=== PATIENT | female | born 1975 | race Caucasian/White ===

== ENCOUNTER → 2022-08-16 08:54 | Outpatient (BNVA) | payer SELFPAY | PROVIDERS: Family Provider Registered Nurse; PCP Registered Nurse; Visit Provider Obstetrics & Gynecology | DX: R30.0 Dysuria (principal) | CPT/HCPCS: 81000 ==

== ENCOUNTER → 2022-08-21 15:01 | Outpatient (BNVA) | payer SELFPAY | PROVIDERS: Family Provider Registered Nurse; PCP Registered Nurse; Visit Provider Podiatrist Foot & Ankle Surgery | DX: M21.611 Bunion of right foot (principal); M21.612 Bunion of left foot | CPT/HCPCS: 73630 ==

== ENCOUNTER 2022-09-24 10:34 | Emergency (ER) | payer SELFPAY ==
[2022-09-24 10:48] VITALS: BMI 23.6
[2022-09-24 10:53] VITALS: BP 184/98; PULSE 74; RESP 16; TEMP 37.1; O2SAT 97
--- NOTE | 2022-09-24 11:03 | W.ED.EYEPROB ---
HPI - Eye Problem General: Chief complaint: Eye Problems Stated complaint: LT eye inj Time Seen by Provider: 09/24/22 10:55 Source: patient Mode of arrival: ambulatory Limitations: no limitations History of Present Illness: This patient presents to the emergency department because she thinks she might have something in her left eye. She states that she awoke approximately 5 AM with pain in the left eye. She denies any known foreign body to the eye. She did not engage in any behaviors that would put her at risk for foreign body such as woodworking metal grinding etc. She states she was at a adult prom last evening and did not have any pain or discomfort when she went to bed. She denies any recent cough cold congestion runny nose etc. She denies any known exposure to conjunctivitis. She does not wear contact lenses. She otherwise is in good health and takes no daily medications. MD chief complaint: eye pain Eye Symptoms: pain Place: home Associated symptoms: Reports no associated symptoms; Denies fever(s), headache(s), nausea, neck pain or vomiting Review of Systems Const: Denies: fever(s) or chills Eyes: Reports: eye discomfort; Denies: change in vision or blurry vision ENMT: Denies: throat pain, odynophagia, ear or mastoid pain, nasal discharge or nasal congestion Card: Denies: chest pain Resp: Denies: dyspnea GI: Denies: nausea or vomiting Musc: Denies: neck pain Skin/Breast: Denies: rash Neuro: Denies: headache(s), numbness in extremities or weakness in extremities FOR[facility]LY [facility], [facility]–1983 ED PFSH: Surgical History (Updated 08/21/22 @ 22:50 by Bolivar Babcock MD) H/O: hysterectomy (~2017) Physical Exam Narrative: EXAM NARRATIVE: She is alert wearing dark glasses. Const: COMMON NORMALS: patient oriented x3 and alert GENERAL APPEARANCE: cooperative HENMT: COMMON NORMALS: normocephalic, atraumatic, EAC's normal, TM's normal bilaterally, moist oral mucous membranes and oropharynx normal HEAD & SCALP: normocephalic and atraumatic FACE & SINUS: normal facial exam and sinuses nontender EXTERNAL AUDITORY CANAL: EAC's normal TYMPANIC MEMBRANE: TM's normal bilaterally Eye: COMMON NORMALS: Equal, round and reactive pupils present and EOMs intact bilaterally VISUAL ACUITY: Yes acuity normal (20/20 right eye; 20/25 left eye. Without correction.) EYELID: eyelids normal CONJUNCTIVA: Yes conjunctival abnormal (Mild to moderate injection with clear drainage) positive left PUPIL: Yes Equal, round and reactive pupils present SLIT LAMP EXAM: Yes cornea (2 to 3 mm stain uptake in the 4 o'clock position of the left eye) EYE IMAGES: 1. 3 mm diameter uptake of fluorescein stain Neck/C-Spine: COMMON NORMALS: full ROM, no lymphadenopathy and supple Resp: COMMON NORMALS: normal respiratory effort EFFORT & INSPECTION: Yes able to speak in complete sentences Cardio: COMMON NORMALS: Peripheral pulses 2+ throughout PERIPHERAL PULSES: Peripheral pulses 2+ throughout Extremity: COMMON NORMALS: normal to inspection and full ROM Neuro: COMMON NORMALS: patient oriented x3, moves all extremities, no focal motor deficits and no sensory deficits noted SENSORIUM/ORIENTATION: Yes alert CRANIAL NERVES: Yes CN normal except as noted Psych: COMMON NORMALS: mental status grossly normal Skin: COMMON NORMALS: no rashes or lesions noted and turgor normal GENERAL SKIN EXAM: no rashes or lesions noted and turgor normal Course Reevaluation(s): Reevaluation #1: A more comprehensive eye exam was carried out. After placing tetracaine anesthetic drops in the left eye the eyelid and surrounding structures were everted and evaluated for any evidence of retained foreign body etc. There was no evidence of foreign body upon this evaluation. There was mild conjunctival injection. The discharge was clear. Fluorescein staining was then placed in the conjunctiva of the left eye. There was a small approximately 2-3 mm area of circular stain uptake in the approximately 4 o'clock position distal to the pupil of the left eye. No other uptake was noted. Time: 11:32 Vital Signs: Vital signs: Vital Signs Temperature 98.8 F 09/24/22 10:53 Pulse Rate 74 09/24/22 10:53 Respiratory Rate 16 09/24/22 10:53 Blood Pressure 184/98 09/24/22 10:53 Pulse Oximetry 97 09/24/22 10:53 Oxygen Delivery Me thod Room Air 09/24/22 10:53 MDM - Eye Problem Medical Decision Making This patient presented to our emergency department with left eye pain. The pain began and woke her from sleep approximately 5 AM this morning. She was unaware of any obvious precursors to her current discomfort. She states she did not knowingly involved herself in any potential situations that would put her at risk for foreign body or other issues. She has had prior Lasix 20 years ago and does wear glasses for reading now. No recent risk for eye infection history of iritis etc. No recent urine URIs or exposure to conjunctivitis. Her clinical exam revealed mild injection of the left eye with intact visual acuity measured without correction 20/25 in the affected eye compared with 2020 in the unaffected eye. Clinical exam revealed no evidence of suggest other concerns such as retained foreign body etc. She did have fluorescein stain uptake suggestive and consistent with corneal abrasion. At this time no other evidence of more serious or other concerning pathology of her left eye. She will be given a antibiotic ointment to use for the next 24 hours as well as a approximately 2 meals of tetracaine to use as needed for the next 24 hours with instructions to not continue this medication at all after 24 hours and if she still has pain she is to return to this or the nearest emergency department for reevaluation. Both she and her partner voiced understanding of these instructions. Discharge Plan Discharge Patient Disposition: Home Clinical Impression: Corneal abrasion Condition: Stable Prescriptions: No Action meloxicam 15 mg tablet 15 mg PO DAILY 30 Days Qty: 30 3RF Discharge Orders: Discharge ED (Routine); Ordered 09/24/22 Ordered By: Kris Ngo Referrals: Jazmyn Lora FNP [Primary Care Provider] - Discharge Diet: Usual diet Discharge Activity: Increase activity as tolerated Patient Instructions: Opioid Safety, Pain Management Activity Restrictions/Additional Instructions: As we discussed while you are in the emergency department have a small scratch on the covering of your left eye which should heal without any issues over the next 24 hours. We have provided an antibiotic ointment you should use approximately half inch ribbon to the left eye 4 times a day for the next 24 hours. We have also provided a very very small amount of numbing medicine that she may use as needed for the next 24 hours. If in 24 hours you continue to have any discomfort pain change in your vision or other concerns return to the emergency department immediately. Do not use any of the medications we have provided after 24 hours. Coding Level of Care Code ED [employer] Tester for Cindy Castro
[2022-09-24] MEDS: fluorescein 1 mg Strip EYE-LEFT (11:12)
[2022-09-24] MEDS: tetracaine 0.5% Op Soln 4 mL Btl 3 DROP EYE-LEFT (11:13)
[2022-09-24 11:35] VITALS: O2SAT 95
[2022-09-24] MEDS: erythromycin Op Oint 1 gm 1 APPLIC EYE-LEFT (11:35)
== END 2022-09-24 11:36 | disposition home or self-care (01) ==
PROVIDERS: Emergency Provider Emergency Medicine; PCP Registered Nurse
DX: S05.02XA Injury of conjunctiva and corneal abrasion without foreign body, left eye, initial encounter (principal); X58.XXXA Exposure to other specified factors, initial encounter
CPT/HCPCS: 99283

== ENCOUNTER 2023-03-19 08:55 | Emergency (ER) | payer SELFPAY ==
[2023-03-19 08:59] VITALS: BP 156/102; PULSE 96; RESP 16; TEMP 36.6; O2SAT 97; BMI 25.1
--- NOTE | 2023-03-19 09:06 | XRR_ITS ---
PROCEDURE INFORMATION: Exam: XR Left Knee Exam date and time: 03/19/2023 9:11 AM Age: 47 years old Clinical indication: Pain; Left; Patient HX: [place] lt knee pop; Additional info: Trauma TECHNIQUE: Imaging protocol: Radiologic exam of the left knee. Views: 3 views. COMPARISON: [place] [id number] ORTH 08/21/2022 3:05 PM FINDINGS: Bones/joints: The medial joint space is well maintained. The lateral joint space is well maintained. No fracture identified. Flabella noted. Soft tissues: Trace joint effusion. XR/XR knee LT 3V* [id number] IMPRESSION: 1. Trace joint effusion. 2. No acute fracture or dislocation.
--- NOTE | 2023-03-19 09:51 | W.ED.EXTPRO ---
HPI - Extremity Problem General: Chief complaint: Extremity Injury, Lower Stated complaint: left knee injury Time Seen by Provider: 03/19/23 09:06 Source: patient Mode of arrival: ambulatory History of Present Illness: 47-year-old female who presents to the emergency room with left knee pain. Last night she tried to product picker her daughter and do a squat while holding her daughter. Her daughter is a full-grown adult. This resulted in a popping sensation in her left knee and severe pain. At rest it is tolerable but with any kind of attempts at weightbearing or flexion of the left knee she has severe pain. She has difficult time with ambulation. No other injuries associated with this no previous surgeries. MD Complaint: joint swelling and joint pain Onset (ago): day(s) (1) Pain Consistency: constant Location: left and knee Quality: aching Radiation: none Relieving factors: nothing Exacerbating factors: nothing Associated symptoms: Deny arthralgias, chest pain, fever(s), myalgias, rash or short of breath Review of Systems Const: Denies: fever(s) Card: Denies: chest pain Resp: Denies: dyspnea GI: Denies: abdominal pain : Denies: dysuria, urinary frequency or urinary urgency Musc: Reports: joint pain (Left knee) and joint swelling; Denies: neck pain or back pain Skin/Breast: Denies: rash [facility] ED PFSH: Surgical History (Updated 08/21/22 @ 22:50 by Bolivar Babcock MD) H/O: hysterectomy (~2017) Physical Exam Const: GENERAL APPEARANCE: cooperative and comfortable ORIENTATION/CONSCIOUSNESS: Yes awake, Yes oriented to person, Yes oriented to place and Yes oriented to time HENMT: COMMON NORMALS: normocephalic, atraumatic and hearing grossly normal bilaterally HEAD & SCALP: normocephalic and atraumatic Extremity: OTHER: Left knee joint effusion difficult to test for ligament laxity due to pain. X-ray unremarkable Neuro: SENSORIUM/ORIENTATION: Yes oriented to person, Yes oriented to place and Yes oriented to time Skin: COMMON NORMALS: no rashes or lesions noted GENERAL SKIN EXAM: no rashes or lesions noted Course Vital Signs: Vital signs: Vital Signs Temperature 97.8 F 03/19/23 08:59 Pulse Rate 96 03/19/23 08:59 Respiratory Rate 16 03/19/23 08:59 Blood Pressure 156/102 03/19/23 08:59 Pulse Oximetry 97 03/19/23 08:59 Oxygen Delivery Me thod Room Air 03/19/23 08:59 MDM - Extremity (Nontraumatic) Medical Decision Making Mild joint effusions knee sprain possible ligament disruption. Immobilize knee in a knee immobilizer nonweightbearing on crutches diclofenac as needed follow-up with primary care if persistent not improving may need further evaluation Medical Records I reviewed the patient's medical records. Lab Data Radiology Impressions Knee X-Ray 03/19/23 09:06 IMPRESSION: 1. Trace joint effusion. 2. No acute fracture or dislocation. All radiology interpretation(s) finalized by discharge Discharge Plan Discharge Patient Disposition: Home Clinical Impression: Left knee sprain Condition: Stable Prescriptions: New diclofenac sodium 75 mg tablet,delayed release (DR/EC) 75 mg PO Q12H PRN (Reason: pain) Qty: 20 0RF Discharge Orders: Discharge ED (Routine); Ordered 03/19/23 Ordered By: Baron Jaimes Referrals: Jazmyn Lora FNP [Primary Care Provider] - Discharge Diet: Usual diet Discharge Activity: Limit activity as instructed Patient Instructions: Opioid Safety, Pain Management Activity Restrictions/Additional Instructions: Thank you for choosing [facility] for your healthcare needs today. Please realize this is an emergency room and that we are providing you with a medical screening exam and this may not be complete and all inclusive of all the testing and or work up that you may need to determine your ailment or severity of your illness. It is very important that you follow up as instructed or that you return to the Emergency Department should you have concerns or if your condition changes or worsens in any way. You were seen today for left knee pain. Recommend knee immobilizer and crutches as well as anti-inflammatories you can need to use the meloxicam you have been previously prescribed with the diclofenac that you prescribed today do not use both. Follow-up with your primary care provider later this week if it is not improving you may need further evaluation. Coding Level of Care Code ED Machine Shop Instructor for Cindy Castro
== END 2023-03-19 10:37 | disposition home or self-care (01) ==
PROVIDERS: Emergency Provider Family Medicine; PCP Registered Nurse
DX: S83.92XA Sprain of unspecified site of left knee, initial encounter (principal); X50.0XXA Overexertion from strenuous movement or load, initial encounter
CPT/HCPCS: 29530; 73562; 99283; E0114